=== PATIENT | female | born 1950 | race Caucasian/White ===

== ENCOUNTER 2016-12-15 07:30 | Emergency (ER) | payer OTHER ==
[~2016-12-15] VITALS: Ht 165.1 cm; Wt 95.9 kg
[~2016-12-15 07:30] MED LIST: AMLO10TA5 PO; AMLO5TAB2 PO; DSS100 PO; EFF50 PO; MULT-885 PO; OMEP20TA86 PO; RED600TA PO
[2016-12-15 07:40] VITALS: BP 168/91; PULSE 93; RESP 20; O2SAT 92
--- NOTE | 2016-12-15 08:24 | ED.REPORT ---
HPI-Back Pain 40 and Over Date of Service December 15, 2016 ED Provider: Atif Dawkins MD 66 year old female presents to the ER via EMS complaining of three days of right sciatic pain. Associated symptom of right leg tingling. Pain was initially rated 10/10 in severity, but improved to 8/10 after administration of 50mcg Fentanyl en route. Patient was seen yesterday at urgent care where she was given IM Toradol and a prescription for Vicodin, last dose of which was at 02:00 this morning. Upon awakening this morning she fell when her right leg collapsed, but denies any trauma secondary to the fall. She denies bowel and urinary incontinence, and history of sciatica. Nursing Notes Stated Complaint: SCIATIC PAIN Chief Complaint: Back Pain or Injury Nursing Notes Reviewed: Yes Allergies: Coded Allergies: Adhesives (Verified Allergy, Severe, RASH, 02/10/13) ibuprofen (Verified Allergy, Severe, ELEVATED BUN/CREAT, 02/10/13) latex (Verified Allergy, Severe, RASH, 02/10/13) morphine (Verified Allergy, Severe, HYPOTENSION,NAUSEA,HIVES, 02/10/13) Penicillins (Verified Allergy, Unknown, UNKNOWN, 02/10/13) codeine (Verified Allergy, Unknown, UNKNOWN (REFERENCE TO ALLERGY IN OLD RECORD), 02/10/13) azithromycin (Verified Adverse Reaction, Intermediate, UTI's (PT RECENTLY TOOK W/O PROBLEMS), 02/10/13) Scheduled AmLODIPine-Expunged Drug, Do Not Renew! (AmLODIPine-Expunged Drug, Do Not Renew! ) 10 Mg Tablet 10 MG PO DAILY Amlodipine (Amlodipine) 5 Mg Tablet 5 MG PO DAILY Ciprofloxacin (Ciprofloxacin) 500 Mg Tablet 500 MG PO BID Docusate Sod-Expunged Drug, Do Not Renew! (Docusate Sod-Expunged Drug, Do Not Renew!) 100 Mg Capsule 200 MG PO 3 CAPS/DAY Mu-Vits-Min Th/Lycopene/Lutein (Centrum Silver Tablet) 1 Each Tablet 1 EACH PO DAILY Omeprazole-Expunged Drug, Do Not Renew! (Omeprazole-Expunged Drug, Do Not Renew! ) 20 Mg Tablet.dr 20 MG PO DAILY Red Yeast Rice (Red Yeast Rice) 600 Mg Tablet 600 MG PO DAILY Venlafaxine-Expunged Drug, Do Not Renew! (Effexor-Expunged Drug, Do Not Renew!) 50 Mg Tablet 100 MG PO BID General Time Seen by MD: 07:48 Chief Complaint Back pain Hx Obtained From: Patient Arrived By: Ambulance Sudden in Onset?: No Onset Occurred: 3 days ago Symptom Duration: Since onset Caused by: Aggravated old injury Location: : Spinal sacral area Quality: Painful Severity: Current: Moderate Severity: Maximum: Severe Pertinent Negative: Pt denies other symptoms Recent Healthcare: Recent doctor visit Similar Sx Previous: Yes Past Medical History Past Medical History Sciatica Reports: Hypertension Past Surgical History Bladder sling X2 Knee scopes X3 foot repair X4 Reports: Appendectomy, , Cholecystectomy, Hysterectomy, Tonsillectomy Smoking History Never Smoker Social History Alcohol Use: "Social" Drug Use: Denies drug use Other Social History: Ambulatory Status Independent Review of Systems Cardiovascular: Denies: Chest pain Musculoskeletal: Reports: Back pain (Sciatic), Extremity pain (Right Leg) Neurologic: Reports: Numbness, Denies: Abnormal movement, Bladder dysfunction, Bowel dysfunction, Focal weakness, Headache, Weakness Complete sys rev & neg: except as marked. Physical Exam Initial Vital Signs Vital Signs (First) Date Time Temp Pulse Resp B/P Pulse Ox O2 Delivery O2 Flow Rate FiO2 12/15/16 07:40 37.1 93 20 168/91 92 Room Air Initial VS: Reviewed Head / Eyes: Atraumatic, Normocephalic Neck: Supple, Non-tender, Full range of motion Extremities: Vascular intact, Neuro intact, No swelling, No tenderness Skin: Warm, Dry, No cyanosis General/Constitutional: Awake, Alert, Well developed Respiratory / Chest: Breath sounds NL, Breath sounds = bilat, No respiratory distress, No rales, No rhonchi, No wheezing Cardiovascular: Heart rate NL, Regular rhythm, Heart sounds NL, No murmurs, Peripheral circulation NL Abdomen: Soft, Non-tender, No guarding, No rebound, No distention, No palpable mass, No pulsatile mass Back: No midline vertebral tend Flank / Spine / Paraspinal: Positive: Lumbar paraspinal tend... (Right, Lateral ), Sacral paraspinal tend... (Right, Lateral) Positive straight leg raise at 45 degrees on the Right. Interpretation & Diagnostics Lab Results Interpretation Test 12/15/16 08:11 12/15/16 09:38 Hold Purple Top Tube Received (Received) Hold Blue Top Tube Received (Received) Hold Red Top Tube Received (Received) Hold [place] Top Tube Received (Received) Hold Urine Received (Received) Re-Eval/Medical Decision Med Decision/Clinical Course 66-year-old female visiting with right lower back pain radiating down the back of her right leg times several days. No trauma. No urinary symptoms. No CVA tenderness. Abdomen is soft nontender. Straight leg raise is positive. No red flag symptoms. No midline tenderness. Patient was given Toradol with minimal improvement. Urine suggests UTI. We will treat for UTI with antibiotics. Ibuprofen as needed for sciatica. Recommend she follow up with her primary doctor for possible physical therapy referral. Source of Hx: Old records Re-Evaluation/Progress #1: Time of Eval: 09:14 Re-Evaluation/Progress Note: Updated patient on the plan of care. Re-Evaluation/Progress #2: Time of Eval: 09:49 Re-Evaluation/Progress Note: Discussed lab results and plan to discharge. Patient is amenable to the plan. Return precautions given. All other questions addressed. Counseled Regarding: Diagnosis, Lab results, Need for follow-up, When/why to return to ED Discharge & Departure Impression: Primary Impression: UTI (urinary tract infection) Additional Impression: Sciatica Disposition: Home Discharge Condition All VS Reviewed: Yes Condition: Improved Patient Instructions: Sciatica (DC), Urinary Tract Infection in Women (DC) Additional Instructions: Take the Ciprofloxacin as prescribed. It is important that you take the entire course of this antibiotic medication, even if you are feeling better. Take ibuprofen regularly for your pain. Use the Vicodin you were prescribed at urgent care for severe pain. Do not consume alcohol, drive, or take acetaminophen while taking Vicodin. Follow-up with your primary care doctor in 1-2 days. Begin physical therapy. Return to the ER if you develop new or worsening pain, numbness/tingling/ weakness, loss of control of your bladder or bowels, headache, neck pain, fever , chills, worsening back pain or any other concerning symptoms. Referrals: Sona Durham MD (PCP) Scribe Attestation Portions of this note were transcribed by Yogi Johnson. I, Dr. Dawkins, personally performed the history, physical exam and medical decision-making; I reviewed and confirmed the accuracy of the information in the transcribed note. Signed by: Herminio Bermudez, 12/15/2016 at 10:06 copies to: Sona Durham MD, Ben M MD December 15, 2016 08:24 YOGI JOHNSON December 15, 2016 08:31
[2016-12-15] MEDS ORDERED: HYDROmorphone 0.5 mg/0.5 mL iSecure Syringe IVPUSH PRN (09:15)
[2016-12-15] MEDS ORDERED: Ondansetron 2 mg/mL 2 mL Inj IVPUSH PRN (09:15)
[2016-12-15] MEDS ORDERED: CIPR-198 PO (09:57)
[2016-12-15 10:17] VITALS: BP 147/87; PULSE 94; O2SAT 95
== END 2016-12-15 09:57 | disposition home or self-care (01) ==
LOC: EDBD 07:30 → EDUNIT# 07:30 → SED 07:30
DX: N39.0 Urinary tract infection, site not specified (principal); M54.31 Sciatica, right side; W19.XXXA Unspecified fall, initial encounter; Y93.89 Activity, other specified; Y92.9 Unspecified place or not applicable; Y99.8 Other external cause status; I10 Essential (primary) hypertension; Z88.6 Allergy status to analgesic agent; Z88.5 Allergy status to narcotic agent; Z88.0 Allergy status to penicillin; Z88.1 Allergy status to other antibiotic agents; Z91.040 Latex allergy status
CPT/HCPCS: 96374; 96375; 99284; J1170; J1885; J2405